=== PATIENT | male | born 1995 | race Caucasian/White ===

== ENCOUNTER 2020-10-08 06:29 | Observation (INO) | payer OTHER ==
[~2020-10-08] VITALS: Ht 167.6 cm; Wt 63.1 kg
--- NOTE | 2020-10-08 10:30 | NUR ---
PATIENT ARRIVES FROM ER WITH Randy HENRIQUEZ RN/NURSE [employer] MANAGER, TO BE ADMITTED TO ROOM 123 FOR APPENDICITIS WITH LAP TERESITA LATER TODAY. VITAL SIGNS OBTAINED, ASSESSMENT COMPLETED. STATES HE IS FEELING BETTER THAN HE DID EARLIER THIS AM. SURGICAL WIPE DOWN COMPLETED.
--- NOTE | 2020-10-08 10:58 | NUR ---
taken to surgery on bed by surgery staff.
--- NOTE | 2020-10-08 12:28 | NUR ---
10/08/20 1228 Miriam Amanda 1225 PATIENT ARRIVES TO PACU UNRESPONSIVE TO PAIN. ORAL AIRWAY IN PLACE. RESP EVEN AND UNLABORED, MASK AT 6 LITERS.
--- NOTE | 2020-10-08 13:29 | NUR ---
PATIENT RETURNS FROM OR TO ROOM 123 WITH RAMIREZ GARDNER. REPORT FROM RAMIREZ GARDNER. PATIENT ASSISTED TO BED. WAKES TO VOICE AND GENTLE SHAKE. REMAINS EXTREMELY LETHARGIC, SIMILAR TO MENTATION PRIOR TO SURGERY. ASSESSMENT COMPLETED. VITALS OBTAINED.
--- NOTE | 2020-10-08 13:48 | HP ---
[facility] [address], [place] [address] Signed ADMISSION DATE: 10/08/2020 REASON FOR ADMISSION: Acute appendicitis. 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 He presented to the emergency room at approximately 7 in the morning, was evaluated by Dr. Peña, noted to have numerous episodes of vomiting starting last night at about 10:00 p.m. He thought he may have had a . His vomiting persisted and on his presentation to emergency room, underwent evaluation by Dr. Peña showing him to be in mild acute distress and with persistent retching. LABORATORY STUDIES: Showed a white count of 17.2, hematocrit of 41.8, normal electrolytes and a creatinine of 0.73 with normal liver enzymes. A CT scan was performed, which showed an impressively dilated and elongated appendix with a large fecalith at the base of the appendix and a bit of a fecalith elsewhere. He is admitted for further evaluation and care. PAST MEDICAL HISTORY: Rather unremarkable. MEDICATIONS: He takes no medications at home. ALLERGIES: He has no known drug allergies. PHYSICAL EXAMINATION: GENERAL: Somewhat subdued, thin white man accompanied by his mother at this time. He has a mild eruption of his torso, possibly related to pain medication or antibiotic which has been given. HEENT: Trachea is midline. Mucous membranes are moist. CHEST: Shows normal respiratory excursion. Has no tachypnea. He is slightly somnolent, but arouses to discussion and is appropriate. Alert and oriented. ABDOMEN: Nondistended. He has mild tenderness in the right lower quadrant, but not too much at this time. EXTREMITIES: Show no clubbing, cyanosis, or edema. Electronically Signed By: LEONA CHAMBERLAIN MD 10/08/20 8083 PATIENT NAME: RON JAMES HISTORY AND PHYSICAL DATE OF : [birth year] REPORT #: [id number] PHYSICIAN: LEONA CHAMBERLAIN MD PCP: NO PRIMARY CARE PHYSICIAN REPORT IS CONFIDENTIAL AND NOT TO BE RELEASED WITHOUT AUTHORIZATION [facility] [address], [place] [address] Signed LAB STUDIES: Show white count of 17.2, hematocrit 41.8, platelets 236,000. Chem profile essentially normal including liver enzymes. Glucose is 138. Urinalysis is notable for specific gravity of 1.033. Fluid administration has been initiated. His COVID-19 test is negative. ASSESSMENT: The patient has clinical and radiographic evidence of acute appendicitis. I discussed with the patient and his mother the findings. Notably, I have operated on his brother in the past and mother is familiar with me. I have recommended laparoscopic appendectomy. The risks of bleeding, infection, need for open procedure and other unforeseen complications was reviewed in detail with them. They understand and wished to proceed. The patient will be operated on this morning at some point, and in the meantime, IV fluids, n.p.o. status and so forth will be maintained. MD MELE Chand/JIGARL /[id number] cc: Dr. Peña Copies: ~ Electronically Signed By: LEONA CHAMBERLAIN MD 10/08/20 1348 PATIENT NAME: RON JAMES Anselmo HISTORY AND PHYSICAL DATE OF : [birth year] REPORT #: [id number] PHYSICIAN: LEONA CHAMBERLAIN MD PCP: NO PRIMARY CARE PHYSICIAN REPORT IS CONFIDENTIAL AND NOT TO BE RELEASED WITHOUT AUTHORIZATION
--- NOTE | 2020-10-08 15:22 | NUR ---
Ambulates to bathroom. Incision sites unchanged. Denies pain at this time. Returns to bed, SCD's replaced. Informed staff will assist him to ambulate in hallway this afternoon. Verbalizes understanding.
--- NOTE | 2020-10-08 16:33 | NUR ---
CONTINUES TO DENY PAIN. ALERT AND ORIENTED AT THIS TIME. IV FLUIDS CONTINUE INFUSING. INCISIONS UNCHANGED
--- NOTE | 2020-10-08 16:51 | NUR ---
Ambulated in hallway X1 lap. Tolerated well with no complaints of pain, discomfort or dizziness/lightheadedness
[2020-10-08] MEDS ORDERED: IBUPROFEN600 MG PO (18:47)
[2020-10-08] MEDS ORDERED: OXYCODON-ACETA1 EAC2 PO (18:47)
[2020-10-08] MEDS ORDERED: ACETAMINOPHEN500 MG PO (18:47)
--- NOTE | 2020-10-08 18:55 | OR ---
[facility] [address], [place] [address] Signed DATE OF OPERATION: 10/08/2020 SURGEON: Leona Chamberlain MD PREOPERATIVE DIAGNOSIS: Acute appendicitis. POSTOPERATIVE DIAGNOSIS: Acute suppurative appendicitis non-perforated. PROCEDURE: Laparoscopic appendectomy. ANESTHESIA: General endotracheal; Salima Gordon CRNA and local 20 mL of 0.25% Marcaine with epinephrine. INDICATION: This 25-year-old thin white man began having an intractable nausea last night at approximately 10:00 p.m. He thought he had eaten a bad pizza. He presented to the emergency room where he was evaluated by Dr. Peña and found to have an elevated white count greater than 17,[address] scan showing a markedly dilated appendix with a large fecalith at the base and findings consistent with acute appendicitis. He has been fluid resuscitated given intravenous antibiotic cefoxitin and is now to undergo appendectomy preferred by laparoscopic approach. The risks of bleeding, infection, need for open procedure and other unforeseen complications was reviewed in detail. He understands and wished to proceed. FINDINGS: Patient has a thin body habitus which made operation somewhat easier obviously. The gallbladder and the liver appeared normal. The appendix was markedly inflamed with suppurative changes, but without sign of perforation. It was dilated and elongated and a rather large overall. It was excised completely including the base of the appendix flushed with the cecum. There were no complications. DESCRIPTION OF PROCEDURE: The patient was brought to the operating room, given a general endotracheal anesthetic. Preoperative antibiotic cefoxitin had been given. Sequential compression device stockings were used and heparin not given. The abdomen was clipped and prepared with a chlorhexidine solution after satisfactory general endotracheal anesthesia. An Electronically Signed By: LEONA CHAMBERLAIN MD 10/08/20 1855 PATIENT NAME: ORN JAMES OPERATIVE REPORT DATE OF : [birth year] REPORT #: [id number] PHYSICIAN: LEONA CHAMBERLAIN MD PCP: NO PRIMARY CARE PHYSICIAN REPORT IS CONFIDENTIAL AND NOT TO BE RELEASED WITHOUT AUTHORIZATION [facility] [address], [place] [address] Signed infraumbilical incision was made and using an open Jhonatan cannula technique, the abdomen was entered and pneumoperitoneum achieved to a level of 14 mmHg of carbon dioxide gas. Intraabdominal inspection showed no sign of ascites or carcinomatosis. There was some inflammatory fluid near the cecum in the right lower abdomen. The appendix was not immediately visible. Under direct visualization, an epigastric 12 mm port was placed and a camera placed to that site. Single hand manipulation of the cecum demonstrated the appendix, which was markedly inflamed. The right lower quadrant 5 mm port was placed and with two-hand manipulation, the appendix more fully rolled into position. The was placed in a [id number] position. There were some attachments of the appendix to the retrocecal area. These were freed with blunt and electrocautery dissection ultimately elevating the appendix completely. The mesoappendix was from the appendix itself and divided with an Endo-SHELLY stapling device with a vascular load. Further dissection of the appendix was undertaken more fully to the base of the cecum as the appendix was notably quite long. Ultimately, the confluence of the appendix and the cecum was identified fully and using the Endo-SHELLY stapling device, it was transected, flushed with the cecum. The appendix was placed in an endobag and extracted through the infraumbilical port site opened on the back table and examined on the back table and photographs were taken. Irrigation was undertaken. The right lower quadrant showing no sign of bleeding. Both staple lines were hemostatic and secured. The excess irrigation of fluid was suctioned free. The right lower quadrant trocar was removed without problem. Upon removal of the epigastric port, there was a small amount of bleeding on that basis. A Evans-Mary device was used to reapproximate the fascia with good hemostatic benefit. Irrigation was undertaken in all the wounds and the midline fascia of the infraumbilical incision was reapproximated with interrupted 0 Vicryl suture. All wounds were copiously irrigated with saline solution. A 20 mL of 0.25% Marcaine with epinephrine was injected locally. The skin was then closed with interrupted 3-0 Vicryl. Steri-Strips were applied. The patient was ultimately extubated and transferred to the recovery room in good condition having suffered no complication. Sponge, needle, and instrument counts were reported as correct x3. MD MELE Chand/MODL /[id number] Electronically Signed By: LEONA CHAMBERLAIN MD 10/08/20 1855 PATIENT NAME: RON JAMES OPERATIVE REPORT DATE OF : [birth year] REPORT #: [id number] PHYSICIAN: LEONA CHAMBERLAIN MD PCP: NO PRIMARY CARE PHYSICIAN REPORT IS CONFIDENTIAL AND NOT TO BE RELEASED WITHOUT AUTHORIZATION [facility] [address] [place], [place] [address] Signed cc: Ash Peña MD Copies: ASH PEÑA MD ~ Electronically Signed By: LEONA CHAMBERLAIN MD 10/08/20 1855 PATIENT NAME: RON JAMES OPERATIVE REPORT DATE OF : [birth year] REPORT #: [id number] PHYSICIAN: LEONA CHAMBERLAIN MD PCP: NO PRIMARY CARE PHYSICIAN REPORT IS CONFIDENTIAL AND NOT TO BE RELEASED WITHOUT AUTHORIZATION
--- NOTE | 2020-10-08 20:14 | NUR ---
Endocrinology Physician to room for dc. Highlighted written instructions provided, as well as verbal instructions. Medication prescription provided. Pt and his significant other request all information be placed in education packet. Packet handed to significant other. VS obtained, wnl. IC dc'd, wnl. pt and his significant other decline assitance with dressing, state they will utilize call light when ready to be taken out to front of building. Side effects of prescription medications discussed. questions, concerns, needs denied at this time. call light in reach.
== END 2020-10-08 20:07 | disposition home or self-care (01) ==
LOC: ED 06:29 → MS 06:30
PROVIDERS: ADMIT Surgery; ATTEND Surgery
PROC: 0DTJ4ZZ Resection of Appendix, Percutaneous Endoscopic Approach (ICD-10-PCS; principal; 2020-10-08 11:15)
DX: K35.80 Unspecified acute appendicitis (principal)
CPT/HCPCS: 74177; J0330; J0694; J1100; J1170; J1790; J1885; J2001; J2250; J2405; J2550; J2704; J7030; J7121; Q9967